=== PATIENT | female | born 2000 | race African-American/Black ===

== ENCOUNTER 2023-06-03 08:56 | Emergency (ER) | payer OTHER ==
[~2023-06-03] VITALS: Ht 157.5 cm; Wt 81.8 kg
[2023-06-03] MEDS ORDERED: PRENTAB77 PO (09:07)
[2023-06-03] MEDS: guaiFENesin ER TABLET 600 MG TAB PO STA (12:27)
[2023-06-03 13:05] LABS: BASO % 0.2 % (0.0-1.0); EOS # 0.2 10^3/uL (0.0-0.5); EOS % 1.9 % (0.0-3.0); HEMATOCRIT 36.3 % (36.0-47.0); HEMOGLOBIN 11.7 g/dl (12.0-15.5); LYMPH # 1.7 10^3/uL (1.5-5.0); MEAN CORPUSCULAR HEMOGLOBIN 23.7 pg (27.0-33.0); MEAN CORPUSCULAR HGB CONC 32.2 g/dl (32.0-36.5); MEAN CORPUSCULAR VOLUME 73.5 fl (80.0-96.0); MONO # 0.6 10^3/uL (0.0-0.8); MONO % 6.3 % (2.0-8.0); NEUTROPHILS # 6.7 10^3/uL (1.5-8.5); NEUTROPHILS % 73.1 % (36.0-66.0); PLATELET COUNT, AUTOMATED 276 10^3/uL (150-450); RED BLOOD COUNT 4.94 10^6/uL (4.00-5.40); WHITE BLOOD COUNT 9.2 10^3/uL (4.0-10.0)
[2023-06-03] MEDS ORDERED: MUCI600T31 PO (13:43)
[2023-06-03] MEDS: FOSFOMYCIN TROMETHAMINE 3 GM POWDER PACKET (MONUROL) PO ONE (14:19)
[2023-06-03 14:34] VITALS: BP 131/72; TEMP 98.1; O2SAT 99
[2023-06-06] MEDS ORDERED: CEFD300C PO (13:31)
== END 2023-06-03 14:37 | disposition home or self-care (01) ==
LOC: M ED 08:56
DX: R31.9 Hematuria, unspecified (principal); R30.0 Dysuria; Z3A.15 15 weeks gestation of pregnancy; Z79.810 Long term (current) use of selective estrogen receptor modulators (SERMs); Z79.899 Other long term (current) drug therapy

== ENCOUNTER 2023-09-18 22:50 | Observation (INO) | payer OTHER ==
[~2023-09-18] VITALS: Ht 157.5 cm; Wt 86.0 kg
[~2023-09-18 22:50] MED LIST: CEFD300C PO; MUCI600T31 PO; PRENTAB77 PO
[2023-09-18 23:09] VITALS: BP 127/77
[2023-09-18 23:57] VITALS: BP 122/73
[2023-09-19] VITALS (8 sets, daily range): BP systolic 117–135; BP diastolic 59–77
[2023-09-19] MEDS: TERBUTALINE SULFATE 1 MG/ML 1ML VIAL SC SCH (00:14)
[2023-09-19] MEDS: FLUCONAZOLE 50MG TABLET PO ONE (00:14)
[2023-09-19 02:03] LABS: HEMATOCRIT 32.8 % (36.0-47.0); HEMOGLOBIN 10.2 g/dl (12.0-15.5); MEAN CORPUSCULAR HEMOGLOBIN 22.2 pg (27.0-33.0); MEAN CORPUSCULAR HGB CONC 31.1 g/dl (32.0-36.5); MEAN CORPUSCULAR VOLUME 71.5 fl (80.0-96.0); PLATELET COUNT, AUTOMATED 300 10^3/uL (150-450); RED BLOOD COUNT 4.59 10^6/uL (4.00-5.40); WHITE BLOOD COUNT 13.8 10^3/uL (4.0-10.0)
[2023-09-19] MEDS: BUTORPHANOL 2 MG/ML 1ML VIAL IV ONE ×2 (02:07→16:37)
[2023-09-19] MEDS: PROMETHAZINE 25MG/ML 1ML VIAL IV ONE ×2 (02:07→16:37)
[2023-09-19] MEDS: LR 1,000 ML IV SCH (02:08)
[2023-09-19 02:29] LABS: ALBUMIN 2.6 G/DL (3.2-5.2); ALKALINE PHOSPHATASE 139 U/L (46-116); ALT/SGPT 16 U/L (7.0-40); AST/SGOT 15 U/L (<34); BILIRUBIN,TOTAL 0.6 MG/DL (0.3-1.2); BLOOD UREA NITROGEN 6 MG/DL (9-23); CALCIUM LEVEL 9.4 MG/DL (8.5-10.1); CARBON DIOXIDE LEVEL 20 MMOL/L (20-31); CHLORIDE LEVEL 105 MMOL/L (98-107); CREATININE FOR GFR 0.51 MG/DL (0.55-1.30); GLOMERULAR FILTRATION RATE > 60.0 (>60); GLUCOSE, FASTING 101 MG/DL (60-100); POTASSIUM SERUM 3.6 MMOL/L (3.5-5.1); SODIUM LEVEL 136 MMOL/L (136-145); TOTAL PROTEIN 6.3 G/DL (5.7-8.2)
[2023-09-19] MEDS: BETAMETHASONE SOLUSPAN 6MG/ML 5ML VIAL IM SCH (07:58)
[2023-09-20] VITALS (16 sets, daily range): BP systolic 108–138; BP diastolic 57–90
[2023-09-20] MEDS: BUTORPHANOL 2 MG/ML 1ML VIAL IV ONE (02:58)
[2023-09-20] MEDS: PROMETHAZINE 25MG/ML 1ML VIAL IV ONE (02:58)
[2023-09-20 05:53] LABS: HEMATOCRIT 29.2 % (36.0-47.0); HEMOGLOBIN 9.2 g/dl (12.0-15.5); MEAN CORPUSCULAR HEMOGLOBIN 22.8 pg (27.0-33.0); MEAN CORPUSCULAR HGB CONC 31.5 g/dl (32.0-36.5); MEAN CORPUSCULAR VOLUME 72.3 fl (80.0-96.0); PLATELET COUNT, AUTOMATED 268 10^3/uL (150-450); RED BLOOD COUNT 4.04 10^6/uL (4.00-5.40); WHITE BLOOD COUNT 18.4 10^3/uL (4.0-10.0)
== END 2023-09-20 14:00 | disposition home or self-care (01) ==
LOC: M LDO 22:50 → M LDI 09-19 21:00
PROVIDERS: ADMIT Advanced Practice Midwife; ATTEND Advanced Practice Midwife
DX: O60.03 Preterm labor without delivery, third trimester (principal); O23.593 Infection of other part of genital tract in pregnancy, third trimester; B37.9 Candidiasis, unspecified; O24.410 Gestational diabetes mellitus in pregnancy, diet controlled; Z3A.31 31 weeks gestation of pregnancy
CPT/HCPCS: 36415; 59025; 80053; 82731; 85027; 86850; 86900; 86901; 96361; 96372; 96374; 96375; 96376; G0463; J0595; J0702; J2550; J3105

== ENCOUNTER 2024-04-09 09:07 | Emergency (ER) | payer OTHER ==
[~2024-04-09] VITALS: Ht 157.5 cm; Wt 83.1 kg
[2024-04-09 11:03] LABS: BASO % 0.4 % (0.0-1.0); EOS # 0.1 10^3/uL (0.0-0.5); EOS % 1.4 % (0.0-3.0); HEMOGLOBIN 11.4 g/dl (12.0-15.5); LYMPH # 2.2 10^3/uL (1.5-5.0); LYMPH % 43.2 % (24.0-44.0); MEAN CORPUSCULAR HEMOGLOBIN 21.9 pg (27.0-33.0); MEAN CORPUSCULAR HGB CONC 30.8 g/dl (32.0-36.5); MONO # 0.4 10^3/uL (0.0-0.8); MONO % 7.7 % (2.0-8.0); NEUTROPHILS # 2.4 10^3/uL (1.5-8.5); NEUTROPHILS % 47.1 % (36.0-66.0); PLATELET COUNT, AUTOMATED 336 10^3/uL (150-450); RED BLOOD COUNT 5.21 10^6/uL (4.00-5.40); WHITE BLOOD COUNT 5.1 10^3/uL (4.0-10.0)
[2024-04-09 11:27] LABS: HCG, SERUM QUALITATIVE NEGATIVE (NEGATIVE); LIPASE 48 U/L (12-53)
[2024-04-09 11:30] LABS: ALBUMIN 3.6 G/DL (3.2-5.2); ALKALINE PHOSPHATASE 128 U/L (35-104); ALT/SGPT 26 U/L (7.0-40); AST/SGOT 16 U/L (<34); BILIRUBIN,DIRECT 0.2 MG/DL (<0.4); BILIRUBIN,TOTAL 0.8 MG/DL (0.3-1.2); TOTAL PROTEIN 7.7 G/DL (5.7-8.2)
[2024-04-09 13:20] VITALS: BP 129/73; TEMP 97.7; O2SAT 98
== END 2024-04-09 13:21 | disposition home or self-care (01) ==
LOC: M ED 09:07
DX: N93.9 Abnormal uterine and vaginal bleeding, unspecified (principal); Z79.810 Long term (current) use of selective estrogen receptor modulators (SERMs)

== ENCOUNTER 2024-07-19 03:31 | Emergency (ER) | payer OTHER ==
[~2024-07-19] VITALS: Ht 167.6 cm; Wt 82.5 kg
[2024-07-19 05:50] VITALS: BP_SYST 117
[2024-07-19 07:46] VITALS: BP_DIAS 118; TEMP 96.7; O2SAT 100
== END 2024-07-19 07:47 | disposition home or self-care (01) ==
LOC: M ED 03:31
DX: J10.1 Influenza due to other identified influenza virus with other respiratory manifestations (principal); Z79.810 Long term (current) use of selective estrogen receptor modulators (SERMs)